=== PATIENT | male | born 1960 | race Caucasian/White ===

== ENCOUNTER 2020-10-01 06:22 | Inpatient (IN) | payer MEDICARE ==
[2020-10-01] MEDS ORDERED: SODIUM CHLORIDE 0.9% 1,000 ML IV ONE (07:00)
[2020-10-01] MEDS ORDERED: MINO2.5 PO (07:39)
[2020-10-01] MEDS ORDERED: MEGE40 PO (07:39)
[2020-10-01] MEDS ORDERED: FERR210T PO (07:39)
[2020-10-01] MEDS ORDERED: IBUP-2071 PO (07:39)
[2020-10-01] MEDS ORDERED: CLON0.1T83 PO (07:39)
[2020-10-01] MEDS ORDERED: FURO20 PO (07:39)
[2020-10-01] MEDS ORDERED: ATOR10TA84 PO (07:39)
[2020-10-01] MEDS ORDERED: CARV25 PO (07:39)
[2020-10-01] MEDS ORDERED: AMLO-258 PO (07:39)
[2020-10-01] MEDS ORDERED: ASPI-1111 PO (07:39)
[2020-10-01] MEDS ORDERED: ZOLP-280 PO (07:39)
[2020-10-01 07:50] LABS: BASOPHILS % (AUTO) 1.1 % (0.0-2.0); HEMATOCRIT 31.1 % (41-53); LYMPHOCYTES # (AUTO) 1.1 K/uL (1.0-4.8); MEAN CORPUSCULAR HEMOGLOBIN 31.4 pg (26.0-34.0); MEAN CORPUSCULAR HGB CONC 32.2 G/dL (31.0-37.0); MEAN CORPUSCULAR VOLUME 98 fL (80-100); MONOCYTES # (AUTO) 1.1 K/uL (0.1-1.0); MONOCYTES % (AUTO) 10.5 % (2.0-9.0); NEUTROPHILS % (AUTO) 39.1 % (40.0-70.0); PLATELET COUNT (AUTO) 134 K/uL (150-450); RED BLOOD CELL COUNT(AUTO) 3.19 MIL/uL (4.50-5.90); RED CELL DISTRIBUTION WIDTH 15.3 % (11.5-14.5)
[2020-10-01 07:52] LABS: EOSINOPHILS % (AUTO) 38.3 % (1.0-6.0)
[2020-10-01 08:04] LABS: CALCIUM, TOTAL 8.4 mg/dL (8.8-10.5); CREATININE 5.31 mg/dL (0.60-1.30); POTASSIUM 4.6 mmol/L (3.5-5.1)
[2020-10-01 08:46] LABS: INR 1.1 (0.9-1.1); PROTHROMBIN TIME 11.8 SEC (9.4-11.6)
[2020-10-01] MEDS ORDERED: LIDOCAINE/PF 1% 30 ML VIAL ONE (11:54)
[2020-10-01] MEDS ORDERED: IOHEXOL 300 MG/ML 150 ML VIAL ONE (11:55)
[2020-10-01] MEDS ORDERED: SODIUM BICARBONATE 50 MEQ/50 ML VIAL ONE (11:55)
[2020-10-01 11:58] VITALS: BP 178/85
[2020-10-01] MEDS ORDERED: MIDAZOLAM HCL 2 MG/2 ML VIAL ONE (12:01)
[2020-10-01] MEDS ORDERED: FentaNYL CITRATE PF 100 MCG/2 ML VIAL ONE (12:01)
[2020-10-01] MEDS ORDERED: IOHEXOL 300 MG/ML 100 ML VIAL ONE (12:25)
[2020-10-01] MEDS ORDERED: HEPARIN SODIUM,PORCINE 5,000 UNITS/ML VIAL IVP ONE (12:30)
[2020-10-01] MEDS ORDERED: FentaNYL CITRATE PF 100 MCG/2 ML VIAL IVP ONE ×3 (12:30)
[2020-10-01] MEDS ORDERED: MIDAZOLAM HCL 2 MG/2 ML VIAL IVP ONE (12:30)
[2020-10-01] MEDS ORDERED: HEPARIN SODIUM 1000 UNITS/NS 1,000 ML IARTER ONE (12:30)
[2020-10-01] MEDS ORDERED: IOHEXOL 300 MG/ML 150 ML VIAL IARTER ONE (12:30)
[2020-10-01] MEDS ORDERED: LIDOCAINE 1% 30 ML/SOD BICARB 8.4% 4 ML SQ ONE (12:30)
[2020-10-01 12:43] VITALS: BP 172/87
[2020-10-01] MEDS ORDERED: TICAGRELOR 90 MG TABLET ONE (12:43)
[2020-10-01] MEDS ORDERED: ACETAMINOPHEN 325 MG TABLET PO PRN (13:00)
[2020-10-01] MEDS ORDERED: CloNIDine HCL 0.1 MG TABLET PO PRN (13:00)
[2020-10-01] MEDS ORDERED: TICAGRELOR 90 MG TABLET PO ONE (13:00)
[2020-10-01] MEDS ORDERED: OxyCODONE HCL/ACETAMINOPHEN 5-325 MG TABLET PO PRN (13:00)
[2020-10-01 16:00] VITALS: BP 160/85
[2020-10-01] MEDS: VITAMIN B COMP/VIT C/FOLIC ACID CAPSULE PO SCH (16:45)
[2020-10-01 16:53] VITALS: BP_SYST 143; BP_SYST 156; BP_DIAS 86
[2020-10-01 17:53] VITALS: BP 143/70
[2020-10-01] MEDS: DOCUSATE SODIUM 100 MG CAPSULE PO SCH (19:56)
[2020-10-01] MEDS: TICAGRELOR 90 MG TABLET PO SCH (19:56)
[2020-10-01] MEDS: CARVEDILOL 25 MG TABLET PO SCH (19:56)
[2020-10-01 20:01] VITALS: BP 140/60
[2020-10-01] MEDS ORDERED: ATORVASTATIN CALCIUM 40 MG TABLET PO SCH (21:00)
[2020-10-01] MEDS ORDERED: ZOLPIDEM TARTRATE 5 MG TABLET PO PRN (21:45)
[2020-10-02 00:40] VITALS: BP 138/63
[2020-10-02 05:00] VITALS: BP 129/71
[2020-10-02 08:07] VITALS: BP 141/61
[2020-10-02] MEDS: TICAGRELOR 90 MG TABLET PO SCH (08:12)
[2020-10-02] MEDS: DOCUSATE SODIUM 100 MG CAPSULE PO SCH (08:12)
[2020-10-02] MEDS: VITAMIN B COMP/VIT C/FOLIC ACID CAPSULE PO SCH (08:13)
[2020-10-02] MEDS: CARVEDILOL 25 MG TABLET PO SCH (08:13)
[2020-10-02] MEDS ORDERED: AmLODIPine BESYLATE 10 MG TABLET PO SCH (09:00)
[2020-10-02] MEDS ORDERED: FAMOTIDINE 20 MG TABLET PO SCH (09:00)
[2020-10-02] MEDS ORDERED: ASPIRIN 81 MG CHEWABLE TABLET PO SCH (09:00)
[2020-10-02 11:49] LABS: BASOPHILS % (AUTO) 1.1 % (0.0-2.0); HEMATOCRIT 28.4 % (41-53); LYMPHOCYTES # (AUTO) 0.8 K/uL (1.0-4.8); MEAN CORPUSCULAR HEMOGLOBIN 31.3 pg (26.0-34.0); MEAN CORPUSCULAR HGB CONC 31.8 G/dL (31.0-37.0); MEAN CORPUSCULAR VOLUME 99 fL (80-100); MONOCYTES # (AUTO) 0.6 K/uL (0.1-1.0); MONOCYTES % (AUTO) 8.4 % (2.0-9.0); NEUTROPHILS # (AUTO) 4.3 K/uL (1.8-7.7); NEUTROPHILS % (AUTO) 55.1 % (40.0-70.0); PLATELET COUNT (AUTO) 107 K/uL (150-450); RED BLOOD CELL COUNT(AUTO) 2.89 MIL/uL (4.50-5.90); RED CELL DISTRIBUTION WIDTH 15.6 % (11.5-14.5)
[2020-10-02 11:52] LABS: EOSINOPHILS % (AUTO) 25.4 % (1.0-6.0)
[2020-10-02 12:13] LABS: CALCIUM, TOTAL 7.4 mg/dL (8.8-10.5); CREATININE 4.13 mg/dL (0.60-1.30); POTASSIUM 4.2 mmol/L (3.5-5.1)
[2020-10-02 12:14] VITALS: BP 118/56
== END 2020-10-02 12:45 | disposition home or self-care (01) | DRG 246 ==
LOC: CATHLAB 06:22 → 5S 06:23 → UNDOADMIN 15:35
PROVIDERS: ADMIT Internal Medicine; ATTEND Internal Medicine Interventional Cardiology
PROC: 4A023N7 Measurement of Cardiac Sampling and Pressure, Left Heart, Percutaneous Approach (ICD-10-PCS; principal; 2020-10-01)
PROC: 027034Z Dilation of Coronary Artery, One Artery with Drug-eluting Intraluminal Device, Percutaneous Approach (ICD-10-PCS; 2020-10-01)
PROC: B2111ZZ Fluoroscopy of Multiple Coronary Arteries using Low Osmolar Contrast (ICD-10-PCS; 2020-10-01)
PROC: B2151ZZ Fluoroscopy of Left Heart using Low Osmolar Contrast (ICD-10-PCS; 2020-10-01)
PROC: B41F1ZZ Fluoroscopy of Right Lower Extremity Arteries using Low Osmolar Contrast (ICD-10-PCS; 2020-10-01)
DX: I25.119 Atherosclerotic heart disease of native coronary artery with unspecified angina pectoris (principal); N18.6 End stage renal disease; I12.0 Hypertensive chronic kidney disease with stage 5 chronic kidney disease or end stage renal disease; E44.0 Moderate protein-calorie malnutrition; I42.9 Cardiomyopathy, unspecified; E78.00 Pure hypercholesterolemia, unspecified; N28.9 Disorder of kidney and ureter, unspecified; E78.5 Hyperlipidemia, unspecified; Z79.899 Other long term (current) drug therapy; Z99.2 Dependence on renal dialysis; I73.9 Peripheral vascular disease, unspecified
CPT/HCPCS: 87340; 92928; 93005; G0378; J2250; J3010; J3490; Q9967